=== PATIENT | female | born 1990 | race Caucasian/White ===

== ENCOUNTER 2023-09-23 23:29 | Emergency (ER) | payer OTHER ==
[2023-09-23 23:43] VITALS: BP 127/90; PULSE 69; RESP 17; TEMP 98.4; BMI 27.3
== END 2023-09-23 23:58 | disposition home or self-care (01) ==
LOC: EDSEX → FER 23:29
DX: R07.89 Other chest pain (principal); R61 Generalized hyperhidrosis; R11.0 Nausea; R06.02 Shortness of breath
CPT/HCPCS: 93005; 99283-25